=== PATIENT | female | born 1950 ===

== ENCOUNTER 2016-08-02 12:50 | Emergency (ER) | payer OTHER ==
[2016-08-02 13:21] VITALS: TEMP 98.2
[2016-08-02] MEDS ORDERED: Oxycodone/Acetaminophen 5/325 mg Tab PO STA (14:03)
--- NOTE | 2016-08-02 14:22 | C.PDOC ---
History Of Present Illness 65 yr old female w/PMHx of morbid obesity brought in via BLS, presents to the ER for evaluation of diffuse lower back pain after she was tripped by a student at work and fell. Patient states the pain is localized to the lower back and worse with movement, was unable to walk due to the pain. Patient denies head injury, LOC, syncope, headache, dizziness, neck pain, chest pain, SOB, abdominal pain,N/V, denies saddle anesthesia, incontinence,denies weakness, sensory or vascular deficits to B/L UEs and LEs. 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) Past Medical History Reviewed: Historical Data, Nursing Documentation, Vital Signs Vital Signs: Last Vital Signs Temp 98.2 F 08/02/16 13:20 Pulse 78 08/02/16 15:20 Resp 18 08/02/16 15:20 BP 142/75 08/02/16 15:20 Pulse Ox 98 08/02/16 15:20 - Medical History PMH: HTN, Osteoporosis Other PMH: morbid obesity Family History: States: No Known Family Hx - Social History Hx Tobacco Use: No Hx Alcohol Use: No Hx Substance Use: No - Immunization History Hx Tetanus Toxoid Vaccination: No Hx Influenza Vaccination: No Hx Pneumococcal Vaccination: No Review Of Systems Except As Marked, All Systems Reviewed And Found Negative. Constitutional: Negative for: Fever Cardiovascular: Negative for: Chest Pain Respiratory: Negative for: Shortness of Breath Gastrointestinal: Negative for: Abdominal Pain Musculoskeletal: Positive for: Back Pain (Diffuse lower back pain ). Negative for: Neck Pain Neurological: Negative for: Weakness, Numbness Physical Exam - Physical Exam Appears: Well, Non-toxic, No Acute Distress Skin: Warm, Dry, No Rash Head: Atraumatic, Normacephalic Eye(s): bilateral: Normal Inspection Ear(s): Bilateral: Normal Nose: Normal, No Deformity, No Tenderness Oral Mucosa: Moist Tongue: Normal Appearing Lips: Normal Appearing Throat: Normal Neck: Normal, Normal ROM, No Midline Cervical Tenderness, No Paracervical Tenderness, No Step Off Deformity, Supple Chest: Symmetrical, No Tenderness Cardiovascular: Rhythm Regular, No Murmur Respiratory: Normal Breath Sounds, No Rales, No Rhonchi, No Stridor, No Wheezing Gastrointestinal/Abdominal: Normal Exam, Soft, No Tenderness, No Distention, No Guarding, No Rebound Back: Normal Inspection, No CVA Tenderness, No Vertebral Tenderness, No Muscle Spasm, Paraspinal Tenderness (Diffuse lumbar paraspinal tenderness. ) Extremity: Normal ROM, No Deformity, No Swelling Extremity: Bilateral: Atraumatic Neurological/Psych: Oriented x3, Normal Speech, Normal Motor, Normal Sensation, Normal Reflexes ED Course And Treatment O2 Sat by Pulse Oximetry: 99 Pulse Ox Interpretation: Normal - CT Scan/US CT - Lumbar Spine Other Rad Studies (CT/US): Read By Radiologist, Radiology Report Reviewed CT/US Interpretation: PROCEDURE: CT Lumbar Spine without contrast. HISTORY: injury. COMPARISON: No prior study available comparison. TECHNIQUE: Axial computed tomography images were obtained of the lumbar spine without the use of intravenous contrast. Coronal and sagittal reformatted images were created and reviewed. Radiation dose: Total exam DLP = 1850.37 mGy-cm. FINDINGS: VERTEBRAE: Current study reveals no compression fractures nor retropulsed fragments. Vertebral bodies exhibit relatively normal stature. Vertebral bodies and facets normally aligned. DISCS/SPINAL CANAL/NEURAL FORAMINA: Multilevel degenerative spondylosis. At the L5-S1 level, there is relatively adequate disc height with no disc herniation or significant disc bulge. Facet joints are hypertrophic left greater than right. The overall central bony canal appears adequate. Exit foramina are also adequate. At the L4-L5 level, there is minor posterior disc space narrowing. No disc herniation however the minor broad-based bulge of the posterior annulus is present. The there is minor flattening the ventral surface of sac. Facets also hypertrophic. Central canal is slightly narrowed. At the L3-L4 level, there is mild to moderate posterior disc space narrowing. Minimal broad-based bulge posterior annulus is present. Facets also slightly overgrown. Central canal is marginal to slightly narrowed. Exit foramina are adequate. Similar changes seen at the L2-L3 level. At the L1-L2 level, there is [id number] disc space narrowing with vacuum disc phenomena. . Small broad-based disc bulge slightly larger along the posterolateral borders with resultant mild compression of the anterolateral borders of thecal sac. Central canal appears adequate. Facets are slightly hypertrophic. Exit foramina are also adequate. At the T12-L1 level, there is disc space narrowing with small linear calcification along the posterior disc space margin which could be calcified annulus or posterior longitudinal ligament changes result in mild flattening of the ventral surface of thecal sac however the overall central canal is quite capacious. Prominent anterolateral osteophyte formation seen throughout lower thoracic and upper lumbar region. PARASPINAL SOFT TISSUES: Unremarkable. OTHER FINDINGS: None. IMPRESSION: No acute fractures. Multilevel degenerative spondylosis most notably affecting L5-S1 through the L3- L4 levels as above. Progress Note: On re-eavluation, pt is afebrile, hemodynamicaly stable. Non- toxic. Pt was able to ambulate in ED with baseline gait. head: AT/NC. neck: ( -) midline tenderness. Lungs: CTA B/L, BS equal B/L. ABd: benign. Back: (+) exam c/w lumbar contusion. No midine tenderness, no palpable deformity, no skin changes. Extr: FAROM, no neurovascular deficits. neurologicaly intact. Imaging results review and discussed with pt, no acute findings. Pt has clinical findings c/w lumbar sprain w/p mechanicall fall. Pt advised. ref. to F/u with PMD and Ortho in 1-2 days for re-eval. return if any new changes. Medical Decision Making Medical Decision Making: PLAN: * CT - Lumbar Spine * Percocet PO * Valium PO * Toradol IM Disposition Counseled Patient/Family Regarding: Studies Performed, Diagnosis, Rx Given - Disposition Referrals: Fawad Bridges DO [Staff Provider] - Disposition: HOME/ ROUTINE Disposition Time: 15:06 Condition: GOOD Additional Instructions: Bedrest for 1 week OBSERVE 48 HOURS FOR ANY SIGN OF HEAD INJURY-INTRACTABLE HEADACHE, VISUAL CHANGES, VOMITING OR ANY OTHER NEW CHANGES. RETURN TO ED IMMEDIATELY IF ANY NEW CHANGES. Take pain medication as need Follow up with PMD and Orthopedist in 2-3 days for re-evaluation. Return to ED if any worsening or new changes. Prescriptions: Ibuprofen [Motrin] 600 mg PO Q6 #20 tab oxyCODONE/Acetaminophen [Percocet 5/325 mg Tab] 1 tab PO BID PRN #10 tab PRN Reason: Pain Methocarbamol [Robaxin] 500 mg PO TID #14 tab Instructions: Acute Low Back Pain (ED) Forms: Work Excuse - Clinical Impression Clinical Impression: Low back strain, Fall - PA / [employer] / Resident Statement MD/DO has reviewed & agrees with the documentation as recorded. - Scribe Statement The provider has reviewed the documentation as recorded by the Scribe Sylvia Talavera All medical record entries made by the Isidroibe were at my direction and personally dictated by me. I have reviewed the chart and agree that the record accurately reflects my personal performance of the history, physical exam, medical decision making, and the department course for this patient. I have also personally directed, reviewed, and agree with the discharge instructions and disposition.
[2016-08-02] MEDS ORDERED: Oxycodone/Acetaminophen 5/325 mg Tab ONE (14:38)
--- NOTE | 2016-08-02 15:05 | CT ---
PROCEDURE: CT Lumbar Spine without contrast HISTORY: injury COMPARISON: No prior study available comparison. TECHNIQUE: Axial computed tomography images were obtained of the lumbar spine without the use of intravenous contrast. Coronal and sagittal reformatted images were created and reviewed. Radiation dose: Total exam DLP = 1850.37 mGy-cm. FINDINGS: VERTEBRAE: Current study reveals no compression fractures nor retropulsed fragments. Vertebral bodies exhibit relatively normal stature. Vertebral bodies and facets normally aligned. DISCS/SPINAL CANAL/NEURAL FORAMINA: Multilevel degenerative spondylosis. At the L5-S1 level, there is relatively adequate disc height with no disc herniation or significant disc bulge. Facet joints are hypertrophic left greater than right. The overall central bony canal appears adequate. Exit foramina are also adequate. At the L4-L5 level, there is minor posterior disc space narrowing. No disc herniation however the minor broad-based bulge of the posterior annulus is present. The there is minor flattening the ventral surface of sac. Facets also hypertrophic. Central canal is slightly narrowed. At the L3-L4 level, there is mild to moderate posterior disc space narrowing. Minimal broad-based bulge posterior annulus is present. Facets also slightly overgrown. Central canal is marginal to slightly narrowed. Exit foramina are adequate. Similar changes seen at the L2-L3 level. At the L1-L2 level, there is [id number] disc space narrowing with vacuum disc phenomena. . Small broad-based disc bulge slightly larger along the posterolateral borders with resultant mild compression of the anterolateral borders of thecal sac. Central canal appears adequate. Facets are slightly hypertrophic. Exit foramina are also adequate. At the T12-L1 level, there is disc space narrowing with small linear calcification along the posterior disc space margin which could be calcified annulus or posterior longitudinal ligament changes result in mild flattening of the ventral surface of thecal sac however the overall central canal is quite capacious Prominent anterolateral osteophyte formation seen throughout lower thoracic and upper lumbar region PARASPINAL SOFT TISSUES: Unremarkable. OTHER FINDINGS: None. IMPRESSION: No acute fractures. Multilevel degenerative spondylosis most notably affecting L5-S1 through the L3- L4 levels as above.
[2016-08-02 15:21] VITALS: BP 142/75; PULSE 78; RESP 18
[2016-08-02 23:03] VITALS: O2SAT 99
== END 2016-08-02 15:37 | disposition home or self-care (01) ==
LOC: C.ER 12:50
DX: S39.012A Strain of muscle, fascia and tendon of lower back, initial encounter (principal); W03.XXXA Other fall on same level due to collision with another person, initial encounter; Y93.89 Activity, other specified; Y92.219 Unspecified school as the place of occurrence of the external cause; Y99.0 Civilian activity done for income or pay
CPT/HCPCS: 72131; 96372; 99283; J1885